=== PATIENT | male | born 1985 | race African-American/Black ===

== ENCOUNTER 2017-01-31 21:13 | Emergency (ER) | payer MEDICAID ==
[~2017-01-31] VITALS: Ht 180.3 cm; Wt 127.0 kg
[2017-01-31 22:32] VITALS: BP 172/119
[2017-01-31] MEDS ORDERED: cloNIDine HCL 0.1 MG TAB PO ONE (22:45)
== END 2017-01-31 23:12 | disposition home or self-care (01) ==
LOC: ER 21:29
DX: H60.92 Unspecified otitis externa, left ear (principal); I10 Essential (primary) hypertension